=== PATIENT | female | born 1980 | race Caucasian/White ===

== ENCOUNTER 2019-01-27 22:56 | Emergency (ER) | payer BC, OTHER ==
[~2019-01-27] VITALS: Ht 160 cm; Wt 56.0 kg
[~2019-01-27 22:56] MED LIST: HYDR-4011 PO; PANT40TA3 PO
[2019-01-27 23:21] VITALS: Ht 160 cm; Wt 56.0 kg
[2019-01-28] MEDS ORDERED: PANTOPRAZOLE (EC) 40 MG TAB PO ONE (02:30)
[2019-01-28] MEDS ORDERED: ONDANSETRON (ODT) 4 MG TAB ODT STA (03:24)
[2019-01-28] MEDS ORDERED: HYDROCODONE/APAP (5/325) TAB PO ONE (03:30)
[2019-01-28 04:21] VITALS: BP 98/72; PULSE 70; RESP 16
== END 2019-01-28 04:24 | disposition home or self-care (01) ==
LOC: E/R 22:56
DX: K80.20 Calculus of gallbladder without cholecystitis without obstruction (principal)
CPT/HCPCS: 76705; 81003; 81025; 93005; 99284; Z7610